=== PATIENT | male | born 1930 | race African-American/Black ===

== ENCOUNTER 2018-04-15 07:39 | Emergency (ER) | payer OTHER, MEDICAID ==
[~2018-04-15] VITALS: Ht 175.3 cm; Wt 82.0 kg
[2018-04-15 09:13] LABS: HEMATOCRIT. 31.1 % (42.0-52.0); MEAN CORPUSCULAR HEMOGLOBIN 27.2 pg (28.0-32.0); MEAN CORPUSCULAR VOLUME 84.3 fL (80.0-94.0); MEAN PLATELET VOLUME 8.8 fl (7.4-10.4); PLATELET 158 x1000/uL (130-400); RED BLOOD CELL COUNT 3.68 mill/uL (4.7-6.1); RED CELL DISTRIBUTION WIDTH 29.3 % (11.6-14.6)
[2018-04-15 09:19] LABS: CHLORIDE 108 mEq/L (98-107)
[2018-04-15 09:20] LABS: INR 1.2; PROTHROMBIN TIME 12.6 sec (9.4-11.6)
[2018-04-15 10:14] LABS: PLATELET ESTIMATE NORMAL
[2018-04-15 12:26] VITALS: BP 154/71
== END 2018-04-15 13:23 | disposition short-term general hospital (02) ==
LOC: ER 08:04
DX: R04.0 Epistaxis (principal); D64.9 Anemia, unspecified; I11.0 Hypertensive heart disease with heart failure; I50.9 Heart failure, unspecified; Z86.73 Personal history of transient ischemic attack (TIA), and cerebral infarction without residual deficits
CPT/HCPCS: 36415; 71045; 80053; 85025; 85610; 86850; 86900; 99285

== ENCOUNTER 2018-06-16 07:57 | Inpatient (IN) | payer OTHER, MEDICAID ==
[~2018-06-16] VITALS: Ht 167.6 cm; Wt 79.8 kg
[2018-06-16] MEDS ORDERED: SODIUM CHLORIDE 0.9% 1,000 ML IV ONE (08:14)
[2018-06-16 09:47] LABS: BASOPHILS % 0.8 % (0.0-2.0); EOSINOPHILS % 9.2 % (0.0-5.0); HEMATOCRIT. 29.4 % (42.0-52.0); HEMOGLOBIN. 9.7 g/dL (14.0-18.0); LYMPHOCYTES % 11.2 % (20.0-50.0); MEAN CORPUSCULAR HEMOGLOBIN 29.8 pg (28.0-32.0); MEAN CORPUSCULAR VOLUME 89.9 fL (80.0-94.0); MEAN PLATELET VOLUME 8.3 fl (7.4-10.4); MONOCYTES % 13.4 % (2.0-8.0); NEUTROPHILS % 65.4 % (40.0-76.0); PLATELET 152 x1000/uL (130-400); RED BLOOD CELL COUNT 3.27 mill/uL (4.7-6.1); RED CELL DISTRIBUTION WIDTH 21.9 % (11.6-14.6)
[2018-06-16 09:53] LABS: CHLORIDE 113 mEq/L (98-107)
[2018-06-16 09:54] LABS: INR 1.3; PROTHROMBIN TIME 12.7 sec (9.1-11.1)
[2018-06-16] MEDS ORDERED: ATOR40TA70 PO (11:11)
[2018-06-16] MEDS ORDERED: DIPH50SY IJ (11:11)
[2018-06-16] MEDS ORDERED: CYAN10009 PO (11:11)
[2018-06-16] MEDS ORDERED: IPRA3AMP31 IH (11:11)
[2018-06-16] MEDS ORDERED: DIPH-718 PO (11:11)
[2018-06-16] MEDS ORDERED: FURO20TA4 PO (11:16)
[2018-06-16] MEDS ORDERED: FERR325T6 PO (11:16)
[2018-06-16] MEDS ORDERED: POT25TAB5 PO (11:16)
[2018-06-16] MEDS ORDERED: CHOL20009 PO (11:16)
[2018-06-16] MEDS ORDERED: ALBU18HF2 IH ×2 (11:20→17:23)
[2018-06-16] MEDS ORDERED: OMEP20CA10 PO (11:20)
[2018-06-16] MEDS ORDERED: TERA1CAP7 PO ×2 (11:20→17:23)
[2018-06-16] MEDS ORDERED: LACT10SO70 PO ×2 (11:20→17:23)
[2018-06-16] MEDS ORDERED: MONT10TA21 PO (11:20)
[2018-06-16] MEDS ORDERED: CARB15DR OP (11:20)
[2018-06-16] MEDS ORDERED: BECL10.62 IH ×2 (11:20→17:23)
[2018-06-16] MEDS ORDERED: FUROSEMIDE 40MG/4ML VIAL IVP ONE (13:15)
[2018-06-16] MEDS ORDERED: NITROGLYCERIN OINT 1GM/INCH UDPKT TD ONE (13:15)
[2018-06-16] MEDS ORDERED: HYDRALAZINE 20MG/ML VIAL IV PRN (14:15)
[2018-06-16] MEDS ORDERED: CLONIDINE 0.1MG TABLET PO PRN (14:15)
[2018-06-16 16:20] LABS: CLARITY URINE CLEAR (CLEAR); COLOR URINE YELLOW (YELLOW); KETONES URINE NEGATIVE (NEGATIVE); LEUKOCYTE ESTERASE URINE 2+ (NEGATIVE); NITRITE URINE NEGATIVE (NEGATIVE); OCCULT BLOOD URINE NEGATIVE (NEGATIVE); PH URINE 6.5 (4.5-8.0); PROTEIN URINE NEGATIVE (NEGATIVE); SPECIFIC GRAVITY URINE 1.007 (1.005-1.030); UROBILINOGEN URINE 0.2 E.U./dL (0.2-1.0)
[2018-06-16 17:00] VITALS: BP 151/65
[2018-06-16] MEDS ORDERED: CYAN50003 PO (17:23)
[2018-06-16] MEDS ORDERED: CHOL200010 PO (17:23)
[2018-06-16] MEDS ORDERED: CARB15DR EACHEYE (17:23)
[2018-06-16] MEDS ORDERED: LACTULOSE 20G/30ML UDC PO SCH (18:00)
[2018-06-16 20:00] VITALS: BP 122/77
[2018-06-16] MEDS: LEVOFLOXACIN 500MG PREMIX 100 ML IV SCH (20:26)
[2018-06-16 20:34] LABS: AMMONIA 93 uMol/L (<32)
[2018-06-16] MEDS: OMEPRAZOLE 20MG CAPSULE EXTENDED RELEASE PO SCH (20:49)
[2018-06-16] MEDS: ATORVASTATIN CALCIUM 40MG TABLET PO SCH (20:49)
[2018-06-16] MEDS: TERAZOSIN HCL 1MG CAPSULE PO SCH (20:50)
[2018-06-16 20:57] LABS: HEPATITIS B SURFACE ANTIGEN NEGATIVE
[2018-06-16 21:25] LABS: HEPATITIS B CORE AB IGM NEGATIVE
[2018-06-16 21:26] LABS: HEPATITIS A AB IGM NEGATIVE (NEGATIVE)
[2018-06-16] MEDS: IPRATROPIUM/ALBUTEROL 0.5-3(2.5)MG/3ML NEB HHN PRN (21:40)
[2018-06-16] MEDS: BUDESONIDE 0.5MG/2ML NEB HHN SCH (21:41)
[2018-06-16 21:49] LABS: VITAMIN B12 SERUM 1685 pg/mL (211-911)
[2018-06-17] VITALS: BP 179/56
[2018-06-17 04:00] VITALS: BP 146/48
[2018-06-17 05:27] LABS: CHLORIDE 113 mEq/L (98-107); HEMATOCRIT. 25.9 % (42.0-52.0); HEMOGLOBIN. 8.8 g/dL (14.0-18.0); MEAN CORPUSCULAR HEMOGLOBIN 30.1 pg (28.0-32.0); MEAN CORPUSCULAR VOLUME 88.9 fL (80.0-94.0); MEAN PLATELET VOLUME 8.6 fl (7.4-10.4); PLATELET 130 x1000/uL (130-400); RED BLOOD CELL COUNT 2.91 mill/uL (4.7-6.1)
[2018-06-17] MEDS: OMEPRAZOLE 20MG CAPSULE EXTENDED RELEASE PO SCH ×2 (06:34→21:10)
[2018-06-17] MEDS: IPRATROPIUM/ALBUTEROL 0.5-3(2.5)MG/3ML NEB HHN PRN (07:54)
[2018-06-17] MEDS: BUDESONIDE 0.5MG/2ML NEB HHN SCH ×2 (07:55→20:24)
[2018-06-17 07:59] VITALS: BP 136/58
[2018-06-17] MEDS: ASPIRIN 81MG TABLET PO SCH (08:45)
[2018-06-17] MEDS: FUROSEMIDE 40MG TABLET PO SCH (08:45)
[2018-06-17] MEDS: LACTULOSE 20G/30ML UDC PO SCH ×3 (08:45→21:09)
[2018-06-17 12:00] VITALS: BP 120/51
[2018-06-17 16:14] VITALS: BP 126/55
[2018-06-17 18:50] LABS: PLATELET ESTIMATE NORMAL
[2018-06-17 20:00] VITALS: BP 132/54
[2018-06-17] MEDS: ATORVASTATIN CALCIUM 40MG TABLET PO SCH (21:09)
[2018-06-17] MEDS: TERAZOSIN HCL 1MG CAPSULE PO SCH (21:09)
[2018-06-17] MEDS: MONTELUKAST SODIUM 10MG TABLET PO SCH (21:10)
[2018-06-17] MEDS: LEVOFLOXACIN 500MG PREMIX 100 ML IV SCH (21:11)
[2018-06-18] VITALS (7 sets, daily range): BP systolic 100–136; BP diastolic 50–61
[2018-06-18 07:14] LABS: AMMONIA 91 uMol/L (<32)
[2018-06-18] MEDS: ASPIRIN 81MG TABLET PO SCH (07:18)
[2018-06-18] MEDS: LACTULOSE 20G/30ML UDC PO SCH ×3 (07:18→16:55)
[2018-06-18] MEDS: FUROSEMIDE 40MG TABLET PO SCH (07:18)
[2018-06-18] MEDS: OMEPRAZOLE 20MG CAPSULE EXTENDED RELEASE PO SCH (07:18)
[2018-06-18 07:54] LABS: HEMATOCRIT. 24.7 % (42.0-52.0); HEMOGLOBIN. 8.4 g/dL (14.0-18.0); MEAN CORPUSCULAR HEMOGLOBIN 29.9 pg (28.0-32.0); MEAN CORPUSCULAR VOLUME 88.4 fL (80.0-94.0); MEAN PLATELET VOLUME 8.4 fl (7.4-10.4); PLATELET 101 x1000/uL (130-400); RED BLOOD CELL COUNT 2.79 mill/uL (4.7-6.1); RED CELL DISTRIBUTION WIDTH 21.5 % (11.6-14.6)
[2018-06-18 08:44] LABS: CHLORIDE 110 mEq/L (98-107)
[2018-06-18] MEDS ORDERED: RIFAXIMIN 550 MG TABLET PO SCH (09:00)
[2018-06-18 11:10] LABS: PLATELET ESTIMATE DECREASED
[2018-06-18] MEDS: BUDESONIDE 0.5MG/2ML NEB HHN SCH ×2 (13:31→20:40)
[2018-06-18] MEDS: MONTELUKAST SODIUM 10MG TABLET PO SCH (16:55)
== END 2018-06-18 21:35 | disposition short-term general hospital (02) | DRG 70 ==
LOC: ER 08:19 → 6WST 13:22 → ENRESERV 15:24
PROVIDERS: ADMIT Internal Medicine; ATTEND Internal Medicine
DX: G93.41 Metabolic encephalopathy (principal); J18.9 Pneumonia, unspecified organism; E43 Unspecified severe protein-calorie malnutrition; I50.33 Acute on chronic diastolic (congestive) heart failure; N39.0 Urinary tract infection, site not specified; E72.20 Disorder of urea cycle metabolism, unspecified; I48.91 Unspecified atrial fibrillation; I11.0 Hypertensive heart disease with heart failure; M47.892 Other spondylosis, cervical region; M48.02 Spinal stenosis, cervical region; D64.9 Anemia, unspecified; E78.5 Hyperlipidemia, unspecified; B96.89 Other specified bacterial agents as the cause of diseases classified elsewhere; F03.90 Unspecified dementia, unspecified severity, without behavioral disturbance, psychotic disturbance, mood disturbance, and anxiety; H91.90 Unspecified hearing loss, unspecified ear; I25.10 Atherosclerotic heart disease of native coronary artery without angina pectoris; I27.20 Pulmonary hypertension, unspecified; R29.6 Repeated falls; Z79.899 Other long term (current) drug therapy; I69.334 Monoplegia of upper limb following cerebral infarction affecting left non-dominant side; I25.2 Old myocardial infarction; Z68.28 Body mass index [BMI] 28.0-28.9, adult
CPT/HCPCS: 36415; 70450; 70551; 71045; 72125; 72141; 80048; 80053; 80061; 81003; 82140; 82607; 82962; 83036; 83880; 84145; 84443; 84484; 85025; 85610; 86705; 86709; 86803; 87077; 87086; 87186; 87340; 92610; 93005; 94640; 96361; 96374; 97110; 97162; 97530; 99285; J1940; J1956; J7030; J7620; J7626; A4315

== ENCOUNTER 2018-10-10 04:47 | Emergency (ER) | payer OTHER, MEDICAID ==
[~2018-10-10] VITALS: Ht 182.9 cm; Wt 82.0 kg
[2018-10-10] MEDS ORDERED: IPRATROPIUM BROMIDE (0.02%) 0.5MG/2.5ML NEB HHN STA (06:41)
[2018-10-10] MEDS ORDERED: SODIUM CHLORIDE 0.9% 250 ML IV ONE (06:41)
[2018-10-10] MEDS ORDERED: ALBUTEROL (0.083%) 2.5MG/3ML NEB HHN STA (06:41)
[2018-10-10] MEDS ORDERED: LEVOFLOXACIN 500MG PREMIX 100 ML IV ONE (07:15)
[2018-10-10 07:45] LABS: HEMATOCRIT. 24.3 % (42.0-52.0); HEMOGLOBIN. 7.8 g/dL (14.0-18.0); MEAN CORPUSCULAR HEMOGLOBIN 31.8 pg (28.0-32.0); MEAN CORPUSCULAR VOLUME 98.7 fL (80.0-94.0); MEAN PLATELET VOLUME 9.1 fl (7.4-10.4); PLATELET 154 x1000/uL (130-400); RED BLOOD CELL COUNT 2.46 mill/uL (4.7-6.1); RED CELL DISTRIBUTION WIDTH 17.4 % (11.6-14.6)
[2018-10-10 07:52] LABS: INR 1.3; PARTIAL THROMBOPLASTIN TIME 29.4 sec (23.4-31.0); PROTHROMBIN TIME 12.8 sec (9.1-11.1)
[2018-10-10 07:56] LABS: CHLORIDE 111 mEq/L (98-107)
[2018-10-10 08:44] LABS: PLATELET ESTIMATE NORMAL
[2018-10-10] MEDS ORDERED: ASPIRIN 81MG TABLET PO ONE (09:00)
[2018-10-10 10:16] LABS: CLARITY URINE CLOUDY (CLEAR); COLOR URINE YELLOW (YELLOW); KETONES URINE TRACE (NEGATIVE); PROTEIN URINE NEGATIVE (NEGATIVE); SPECIFIC GRAVITY URINE 1.016 (1.005-1.030)
[2018-10-10 10:17] LABS: LEUKOCYTE ESTERASE URINE 2+ (NEGATIVE); NITRITE URINE POSITIVE (NEGATIVE); OCCULT BLOOD URINE 2+ (NEGATIVE)
[2018-10-10 11:28] VITALS: BP 136/54
== END 2018-10-10 12:10 | disposition short-term general hospital (02) ==
LOC: ER 04:47
DX: I11.0 Hypertensive heart disease with heart failure (principal); I50.41 Acute combined systolic (congestive) and diastolic (congestive) heart failure; J18.9 Pneumonia, unspecified organism; D64.9 Anemia, unspecified; R41.82 Altered mental status, unspecified; F03.90 Unspecified dementia, unspecified severity, without behavioral disturbance, psychotic disturbance, mood disturbance, and anxiety; R53.1 Weakness; J44.9 Chronic obstructive pulmonary disease, unspecified; I25.10 Atherosclerotic heart disease of native coronary artery without angina pectoris; E86.0 Dehydration; Z86.73 Personal history of transient ischemic attack (TIA), and cerebral infarction without residual deficits
CPT/HCPCS: 36415; 71045; 80053; 81003; 83605; 83880; 84145; 84484; 85025; 85610; 85730; 87040; 87077; 87086; 87186; 93005; 94640; 96365; 96366; 99291; J1956; J7050; J7611; A4315

== ENCOUNTER 2018-10-21 06:25 | Inpatient (IN) | payer OTHER, MEDICAID ==
[~2018-10-21] VITALS: Ht 167.6 cm; Wt 80.7 kg
[2018-10-21] MEDS ORDERED: SODIUM CHLORIDE 0.9% 1,000 ML IV ONE (06:49)
[2018-10-21 07:56] LABS: BASOPHILS % 1.3 % (0.0-2.0); EOSINOPHILS % 8.8 % (0.0-5.0); HEMATOCRIT. 30.1 % (42.0-52.0); HEMOGLOBIN. 9.6 g/dL (14.0-18.0); LYMPHOCYTES % 12.1 % (20.0-50.0); MEAN CORPUSCULAR HEMOGLOBIN 31.6 pg (28.0-32.0); MEAN CORPUSCULAR VOLUME 98.9 fL (80.0-94.0); MEAN PLATELET VOLUME 9.3 fl (7.4-10.4); MONOCYTES % 14.8 % (2.0-8.0); PLATELET 177 x1000/uL (130-400); RED BLOOD CELL COUNT 3.04 mill/uL (4.7-6.1); RED CELL DISTRIBUTION WIDTH 20.6 % (11.6-14.6)
[2018-10-21 08:03] LABS: CHLORIDE 114 mEq/L (98-107)
[2018-10-21 08:04] LABS: INR 1.2; PROTHROMBIN TIME 12.4 sec (9.1-11.1)
[2018-10-21] MEDS ORDERED: PIPERACILLIN/TAZ 3.375G PREMIX 50 ML IV ONE (09:15)
[2018-10-21] MEDS ORDERED: VANCOMYCIN 1 G PREMIX 200 ML IV ONE (09:15)
[2018-10-21] MEDS ORDERED: SODIUM CHLORIDE 0.9% 1000ML BAG (SEPSIS BOLUS) IV ONE (09:15)
[2018-10-21 12:00] VITALS: BP 142/76
[2018-10-21] MEDS ORDERED: IPRATROPIUM/ALBUTEROL 0.5-3(2.5)MG/3ML NEB INH PRN (12:15)
[2018-10-21] MEDS ORDERED: TRAMADOL 50MG TABLET PO PRN (12:15)
[2018-10-21] MEDS ORDERED: GUAIFENESIN 200MG/10ML SUGAR FREE UDC PO PRN (12:15)
[2018-10-21] MEDS ORDERED: NA PHOS,M-B/NA PHOS,DI-BA ENEMA 118ML PR PRN (12:15)
[2018-10-21] MEDS ORDERED: CLONIDINE 0.1MG TABLET PO PRN (12:15)
[2018-10-21] MEDS ORDERED: NITROGLYCERIN 0.4MG TABLET SL SL PRN (12:15)
[2018-10-21] MEDS ORDERED: ACETAMINOPHEN 325MG TABLET PO PRN (12:15)
[2018-10-21] MEDS ORDERED: ONDANSETRON HCL 4MG/2ML INJ IV PRN (12:15)
[2018-10-21] MEDS ORDERED: ZOLPIDEM TARTRATE 5MG TABLET PO PRN (12:15)
[2018-10-21] MEDS ORDERED: MAGNESIUM/ALUMINUM HYDROXIDE/SIMETHICONE 30ML UDC PO PRN (12:15)
[2018-10-21] MEDS ORDERED: DOCUSATE SODIUM 100MG CAPSULE PO PRN (12:15)
[2018-10-21] MEDS ORDERED: ENOXAPARIN 40MG/0.4ML SYR SUBCUT SCH (12:30)
[2018-10-21 13:29] VITALS: BP 142/76
[2018-10-21 14:00] VITALS: BP 139/67
[2018-10-21] MEDS: PIPERACILLIN/TAZ 3.375G PREMIX 50 ML IV SCH ×2 (15:30→21:41)
[2018-10-21 16:55] LABS: CREATINE KINASE MB FRACTION 1.4 ng/mL (0.5-3.6)
[2018-10-21] MEDS: DILTIAZEM HCL 30MG TABLET PO SCH (17:06)
[2018-10-21 18:06] VITALS: BP 146/64
[2018-10-21 19:08] LABS: T4 FREE 1.39 ng/dL (0.76-1.46)
[2018-10-21 19:43] LABS: VITAMIN B12 SERUM > 2000.0 pg/mL (211-911)
[2018-10-21 20:00] VITALS: BP 143/60
[2018-10-21] MEDS ORDERED: FAMOTIDINE 20MG TABLET PO SCH (21:00)
[2018-10-21] MEDS: ASCORBIC ACID 500 MG TABLET PO SCH (21:00)
[2018-10-21] MEDS: ENOXAPARIN 40MG/0.4ML SYR SUBCUT SCH (21:26)
[2018-10-21] MEDS ORDERED: SODIUM CHLORIDE 0.9% 1000ML BAG (SEPSIS BOLUS) IV NR (21:30)
[2018-10-21 22:00] VITALS: BP 136/89
[2018-10-21] MEDS ORDERED: VANCOMYCIN 1250MG in DEXTROSE 5% WATER 250ML IV SCH (22:00)
[2018-10-21] MEDS ORDERED: SODIUM CHLORIDE 0.9% 1,000 ML IV SCH (23:45)
[2018-10-21] MEDS ORDERED: SODIUM CHLORIDE 0.9% 2,200 ML IV SCH (23:57)
[2018-10-22] VITALS (19 sets, daily range): BP systolic 116–144; BP diastolic 48–78
[2018-10-22] MEDS: PIPERACILLIN/TAZ 3.375G PREMIX 50 ML IV SCH ×3 (02:58→16:58)
[2018-10-22] MEDS: DEXT 5%/LACTATED RINGERS 1,000 ML IV SCH ×2 (05:34→10:47)
[2018-10-22] MEDS: DILTIAZEM HCL 30MG TABLET PO SCH ×3 (06:00→12:00)
[2018-10-22 06:04] LABS: CHLORIDE 116 mEq/L (98-107)
[2018-10-22 06:06] LABS: HEMATOCRIT. 26.8 % (42.0-52.0); HEMOGLOBIN. 8.3 g/dL (14.0-18.0); MEAN CORPUSCULAR HEMOGLOBIN 31.3 pg (28.0-32.0); MEAN CORPUSCULAR VOLUME 101.4 fL (80.0-94.0); MEAN PLATELET VOLUME 9.5 fl (7.4-10.4); PLATELET 128 x1000/uL (130-400); RED BLOOD CELL COUNT 2.64 mill/uL (4.7-6.1); RED CELL DISTRIBUTION WIDTH 19.9 % (11.6-14.6)
[2018-10-22] MEDS ORDERED: ASPIRIN 325MG EC TABLET PO SCH (09:00)
[2018-10-22] MEDS ORDERED: ZINC SULFATE 220 MG ( 50 ) CAPSULE PO SCH (09:00)
[2018-10-22] MEDS: ASCORBIC ACID 500 MG TABLET PO SCH (09:00)
[2018-10-22] MEDS: ENOXAPARIN 40MG/0.4ML SYR SUBCUT SCH (12:46)
[2018-10-22 13:27] LABS: PLATELET ESTIMATE SLIGHTLY DECREASED
[2018-10-22] MEDS ORDERED: MONT10TA21 PO (13:49)
[2018-10-22] MEDS ORDERED: FERR324T4 MT (13:49)
[2018-10-22] MEDS ORDERED: CYAN-33 PO (13:49)
[2018-10-22] MEDS ORDERED: TAMS-11 PO (13:49)
[2018-10-22] MEDS ORDERED: LACT10SO7 PO (13:49)
[2018-10-22] MEDS ORDERED: CHOL20004 PO (13:49)
[2018-10-22] MEDS ORDERED: OMEP20CA10 PO (13:49)
[2018-10-22] MEDS ORDERED: FURO-151 PO (13:49)
[2018-10-22] MEDS ORDERED: POTA20TA82 PO (13:49)
[2018-10-22] MEDS ORDERED: ATROPINE SULFATE 1MG/ML VIAL IV PRN (14:00)
[2018-10-22 18:10] LABS: CLARITY URINE CLEAR (CLEAR); COLOR URINE YELLOW (YELLOW); KETONES URINE NEGATIVE (NEGATIVE); LEUKOCYTE ESTERASE URINE 2+ (NEGATIVE); NITRITE URINE POSITIVE (NEGATIVE); OCCULT BLOOD URINE 1+ (NEGATIVE); PH URINE 5.5 (4.5-8.0); PROTEIN URINE NEGATIVE (NEGATIVE); SPECIFIC GRAVITY URINE 1.018 (1.005-1.030); UROBILINOGEN URINE 0.2 E.U./dL (0.2-1.0)
[2018-10-22] MEDS ORDERED: VANCOMYCIN 1250MG in DEXTROSE 5% WATER 250ML IV SCH (21:00)
[2018-10-23] MEDS ORDERED: ASPIRIN 81MG EC TABLET PO SCH (09:00)
== END 2018-10-22 21:42 | disposition short-term general hospital (02) | DRG 871 ==
LOC: ER 06:25 → 3WST 09:51 → EDBEDREQ 09:53 → ENRESERV 11:00
PROVIDERS: ADMIT Internal Medicine; ATTEND Internal Medicine
DX: A41.9 Sepsis, unspecified organism (principal); G92 Toxic encephalopathy; E43 Unspecified severe protein-calorie malnutrition; I21.4 Non-ST elevation (NSTEMI) myocardial infarction; I69.351 Hemiplegia and hemiparesis following cerebral infarction affecting right dominant side; D63.8 Anemia in other chronic diseases classified elsewhere; F03.90 Unspecified dementia, unspecified severity, without behavioral disturbance, psychotic disturbance, mood disturbance, and anxiety; I08.0 Rheumatic disorders of both mitral and aortic valves; I11.0 Hypertensive heart disease with heart failure; I25.10 Atherosclerotic heart disease of native coronary artery without angina pectoris; I27.21 Secondary pulmonary arterial hypertension; I44.7 Left bundle-branch block, unspecified; I48.91 Unspecified atrial fibrillation; I50.9 Heart failure, unspecified; Z68.28 Body mass index [BMI] 28.0-28.9, adult
CPT/HCPCS: 36415; 70551; 71045; 80061; 82550; 82553; 82607; 82746; 83036; 83540; 83550; 83605; 83735; 83880; 84145; 84439; 84443; 84484; 87077; 87186; 92610; 93005; 93306; 93970; 96361; 96365; 96366; 96375; 99291; J1650; J2543; J3370; J7030; J7050; J7060; J7121

== ENCOUNTER 2018-11-21 16:31 | Emergency (ER) | payer OTHER, MEDICAID ==
[~2018-11-21] VITALS: Ht 182.9 cm; Wt 110.0 kg
[~2018-11-21 16:31] MED LIST: CHOL20004 PO; CYAN-33 PO; FERR324T4 MT; FURO-151 PO; LACT10SO7 PO; MONT10TA21 PO; OMEP20CA10 PO; POTA20TA82 PO; TAMS-11 PO
[2018-11-21] MEDS ORDERED: SODIUM CHLORIDE 0.9% 1,000 ML IV ONE ×2 (17:45→20:45)
[2018-11-21 18:41] LABS: BASOPHILS % 0.6 % (0.0-2.0); EOSINOPHILS % 2.9 % (0.0-5.0); HEMATOCRIT. 31.4 % (42.0-52.0); HEMOGLOBIN. 9.9 g/dL (14.0-18.0); LYMPHOCYTES % 11.9 % (20.0-50.0); MEAN CORPUSCULAR HEMOGLOBIN 30.6 pg (28.0-32.0); MEAN CORPUSCULAR VOLUME 96.6 fL (80.0-94.0); MEAN PLATELET VOLUME 9.3 fl (7.4-10.4); MONOCYTES % 14.8 % (2.0-8.0); NEUTROPHILS % 69.8 % (40.0-76.0); PLATELET 133 x1000/uL (130-400); RED BLOOD CELL COUNT 3.25 mill/uL (4.7-6.1); RED CELL DISTRIBUTION WIDTH 20.5 % (11.6-14.6)
[2018-11-21 18:46] LABS: CHLORIDE 111 mEq/L (98-107)
[2018-11-21] MEDS ORDERED: CEFTRIAXONE 1 G PREMIX 50 ML IV ONE (22:45)
[2018-11-21 22:51] LABS: INR 1.3; PROTHROMBIN TIME 13.2 sec (9.1-11.1)
[2018-11-21 23:01] LABS: BG BASE EXCESS 2.3 mmol/L (-2.0-2.0); BG CARBOXYHEMOGLOBIN 0.7 % (0.5-1.5); BG DEOXYHEMOGLOBIN 4.4 % (0.0-5.0); BG FRACTION INSPIRED OXYGEN 21; BG HCO3 ACT 25.1 mmol/L (22.0-26.0); BG METHEMOGLOBIN 0.1 % (0.0-1.5); BG OXYGEN SATURATION 95.6 % (92.0-98.5); BG OXYHEMOGLOBIN 94.8 % (94.0-97.0); BG PCO2 32.1 mmHg (35.0-45.0); BG PH 7.511 (7.350-7.450); BG PO2 81.3 mmHg (75.0-100.0); BG SAMPLE SITE RIGHT RADIAL; BG TOTAL HEMOGLOBIN 9.5 g/dL (12.0-18.0); BG VENT MODE ROOM AIR
[2018-11-22] MEDS ORDERED: LACTULOSE 20G/30ML UDC PO ONE (00:30)
[2018-11-22 01:35] LABS: CLARITY URINE CLOUDY (CLEAR); COLOR URINE YELLOW (YELLOW); KETONES URINE NEGATIVE (NEGATIVE); LEUKOCYTE ESTERASE URINE 2+ (NEGATIVE); NITRITE URINE POSITIVE (NEGATIVE); OCCULT BLOOD URINE 3+ (NEGATIVE); PROTEIN URINE NEGATIVE (NEGATIVE); SPECIFIC GRAVITY URINE 1.013 (1.005-1.030)
[2018-11-22 03:07] VITALS: BP 147/66
== END 2018-11-22 03:11 | disposition short-term general hospital (02) ==
LOC: ER 16:31 → CANBEDREQ 11-22 03:58
DX: K72.00 Acute and subacute hepatic failure without coma (principal); N30.00 Acute cystitis without hematuria; I10 Essential (primary) hypertension; D64.9 Anemia, unspecified; R00.0 Tachycardia, unspecified; I69.354 Hemiplegia and hemiparesis following cerebral infarction affecting left non-dominant side
CPT/HCPCS: 36415; 36600; 70450; 71045; 80053; 81003; 82140; 82375; 82805; 85025; 85610; 87040; 87077; 87086; 87186; 93005; 96361; 96365; 99285; J0696; J7030

== ENCOUNTER 2019-02-22 02:59 | Emergency (ER) | payer OTHER, MEDICAID ==
[~2019-02-22] VITALS: Ht 177.8 cm; Wt 95.0 kg
[2019-02-22 04:37] LABS: HEMATOCRIT. 28.1 % (42.0-52.0); HEMOGLOBIN. 8.7 g/dL (14.0-18.0); MEAN CORPUSCULAR VOLUME 103.3 fL (80.0-94.0); MEAN PLATELET VOLUME 9.6 fl (7.4-10.4); PLATELET 142 x1000/uL (130-400); RED BLOOD CELL COUNT 2.72 mill/uL (4.7-6.1); RED CELL DISTRIBUTION WIDTH 20.5 % (11.6-14.6)
[2019-02-22 05:36] LABS: CHLORIDE 116 mEq/L (98-107)
[2019-02-22 06:09] LABS: PLATELET ESTIMATE NORMAL
[2019-02-22] MEDS: FUROSEMIDE 40MG/4ML VIAL IVP ONE (06:47)
[2019-02-22] MEDS ORDERED: ASPIRIN 300MG SUPP PR ONE (07:00)
[2019-02-22 08:28] VITALS: BP 150/46
[2019-02-22] MEDS: ASPIRIN 81MG TABLET PO ONE (08:28)
== END 2019-02-22 10:20 | disposition short-term general hospital (02) ==
LOC: ER 02:59 → CANBEDREQ 10:49
DX: I11.0 Hypertensive heart disease with heart failure (principal); I50.9 Heart failure, unspecified; R60.1 Generalized edema; J44.9 Chronic obstructive pulmonary disease, unspecified; Z86.73 Personal history of transient ischemic attack (TIA), and cerebral infarction without residual deficits; Z96.653 Presence of artificial knee joint, bilateral
CPT/HCPCS: 36415; 71045; 74021; 80053; 83880; 84484; 85025; 93005; 93971; 96374; 99285; J1940; A4315

== ENCOUNTER 2019-02-28 16:31 | Emergency (ER) | payer OTHER, MEDICAID ==
[~2019-02-28] VITALS: Ht 177.8 cm; Wt 73.0 kg
[2019-02-28 17:11] LABS: BASOPHILS % 1.2 % (0.0-2.0); EOSINOPHILS % 1.8 % (0.0-5.0); HEMATOCRIT. 26.1 % (42.0-52.0); HEMOGLOBIN. 8.5 g/dL (14.0-18.0); LYMPHOCYTES % 19.1 % (20.0-50.0); MEAN CORPUSCULAR HEMOGLOBIN 31.1 pg (28.0-32.0); MEAN CORPUSCULAR VOLUME 95.8 fL (80.0-94.0); MEAN PLATELET VOLUME 9.2 fl (7.4-10.4); NEUTROPHILS % 63.9 % (40.0-76.0); PLATELET 130 x1000/uL (130-400); RED BLOOD CELL COUNT 2.73 mill/uL (4.7-6.1); RED CELL DISTRIBUTION WIDTH 19.6 % (11.6-14.6)
[2019-02-28 17:14] LABS: CHLORIDE 109 mEq/L (98-107); INR 1.2; PROTHROMBIN TIME 12.6 sec (9.6-11.0)
[2019-02-28] MEDS ORDERED: FUROSEMIDE 40MG/4ML VIAL IVP ONE (20:30)
[2019-02-28] MEDS ORDERED: LACTULOSE 20G/30ML UDC PO ONE (21:45)
[2019-02-28 22:55] LABS: CLARITY URINE CLEAR (CLEAR); COLOR URINE YELLOW (YELLOW); KETONES URINE NEGATIVE (NEGATIVE); LEUKOCYTE ESTERASE URINE 2+ (NEGATIVE); NITRITE URINE NEGATIVE (NEGATIVE); OCCULT BLOOD URINE 2+ (NEGATIVE); PROTEIN URINE NEGATIVE (NEGATIVE); SPECIFIC GRAVITY URINE 1.008 (1.005-1.030); UROBILINOGEN URINE 0.2 E.U./dL (0.2-1.0)
[2019-02-28 23:40] VITALS: BP 132/55
== END 2019-03-01 00:19 | disposition short-term general hospital (02) ==
LOC: ER 16:31 → CANBEDREQ 03-01 00:57
DX: I11.0 Hypertensive heart disease with heart failure (principal); I50.9 Heart failure, unspecified; F03.90 Unspecified dementia, unspecified severity, without behavioral disturbance, psychotic disturbance, mood disturbance, and anxiety; J44.9 Chronic obstructive pulmonary disease, unspecified; Z86.73 Personal history of transient ischemic attack (TIA), and cerebral infarction without residual deficits; Z96.659 Presence of unspecified artificial knee joint
CPT/HCPCS: 36415; 70450; 71045; 80053; 81003; 82140; 82962; 83605; 83880; 84145; 84484; 85025; 85610; 87040; 87077; 87086; 87186; 93005; 96374; 99285; J1940

== ENCOUNTER 2019-11-12 07:44 | Inpatient (IN) | payer OTHER, MEDICAID ==
[~2019-11-12] VITALS: Ht 172.7 cm; Wt 69.9 kg
[2019-11-12] MEDS ORDERED: CEFTRIAXONE 1 G PREMIX 50 ML IV ONE ×2 (09:15→11:30)
[2019-11-12] MEDS ORDERED: AZITHROMYCIN 500 MG in DEXT 5% WATER 250 ML IV ONE ×2 (09:15→11:30)
[2019-11-12] MEDS ORDERED: SODIUM CHLORIDE 0.9% 1000ML BAG (SEPSIS BOLUS) IV ONE ×2 (09:15→11:30)
[2019-11-12 10:19] LABS: MEAN CORPUSCULAR HEMOGLOBIN 28.8 pg (28.0-32.0); MEAN CORPUSCULAR VOLUME 97.7 fL (80.0-94.0); MEAN PLATELET VOLUME 9.6 fl (7.4-10.4); PLATELET 136 x1000/uL (130-400); RED BLOOD CELL COUNT 2.01 mill/uL (4.7-6.1); RED CELL DISTRIBUTION WIDTH 22.3 % (11.6-14.6)
[2019-11-12 10:21] LABS: HEMATOCRIT. 19.7 % (42.0-52.0); HEMOGLOBIN. 5.8 g/dL (14.0-18.0)
[2019-11-12 10:23] LABS: INR 1.2; PROTHROMBIN TIME 12.4 sec (9.6-11.0)
[2019-11-12 10:24] LABS: CHLORIDE 120 mEq/L (98-107)
[2019-11-12 10:42] LABS: PLATELET ESTIMATE NORMAL
[2019-11-12 11:28] LABS: CLARITY URINE CLOUDY (CLEAR); COLOR URINE YELLOW (YELLOW); KETONES URINE NEGATIVE (NEGATIVE); LEUKOCYTE ESTERASE URINE TRACE (NEGATIVE); NITRITE URINE NEGATIVE (NEGATIVE); OCCULT BLOOD URINE 2+ (NEGATIVE); PH URINE 5.5 (4.5-8.0); PROTEIN URINE NEGATIVE (NEGATIVE); SPECIFIC GRAVITY URINE 1.015 (1.005-1.030); UROBILINOGEN URINE 0.2 E.U./dL (0.2-1.0)
[2019-11-12 11:45] LABS: *AMPHETAMINES SCREEN URINE NEGATIVE (NEGATIVE); *BARBITURATES SCREEN URINE NEGATIVE (NEGATIVE); *BENZODIAZEPINES SCREEN URINE NEGATIVE (NEGATIVE); *COCAINE SCREEN URINE NEGATIVE (NEGATIVE); METHADONE URINE SCREEN NEGATIVE (NEGATIVE); OPIATES URINE SCREEN NEGATIVE (NEGATIVE)
[2019-11-12 11:46] LABS: CANNABINOID URINE SCREEN NEGATIVE (NEGATIVE); PHENCYCLIDINE URINE SCREEN NEGATIVE (NEGATIVE)
[2019-11-12] MEDS ORDERED: GUAIFENESIN 200MG/10ML SUGAR FREE UDC PO PRN (13:45)
[2019-11-12] MEDS ORDERED: ACETAMINOPHEN 650MG SUPP PR PRN (13:45)
[2019-11-12] MEDS ORDERED: CLONIDINE 0.1MG TABLET PO PRN (13:45)
[2019-11-12] MEDS ORDERED: ONDANSETRON HCL 4MG/2ML INJ IV PRN (13:45)
[2019-11-12] MEDS ORDERED: LORAZEPAM 2MG/ML CPJ IV PRN (13:45)
[2019-11-12 17:45] VITALS: BP 123/63
[2019-11-12] MEDS: PANTOPRAZOLE SODIUM 40 MG/VIAL IV SCH (18:40)
[2019-11-12] MEDS: DEXTROSE 5% WATER 1,000 ML IV SCH (18:40)
[2019-11-12 20:00] VITALS: BP 115/56
[2019-11-12 21:51] LABS: HEMATOCRIT 22.8 % (42.0-52.0)
[2019-11-12 22:00] VITALS: BP 123/54
[2019-11-13] VITALS (16 sets, daily range): BP systolic 94–126; BP diastolic 43–61
[2019-11-13] MEDS: DEXTROSE 5% WATER 1,000 ML IV SCH ×2 (02:37→08:25)
[2019-11-13 06:15] LABS: HEMATOCRIT. 25.9 % (42.0-52.0); HEMOGLOBIN. 8.2 g/dL (14.0-18.0); MEAN CORPUSCULAR HEMOGLOBIN 29.3 pg (28.0-32.0); MEAN CORPUSCULAR VOLUME 92.8 fL (80.0-94.0); MEAN PLATELET VOLUME 9.2 fl (7.4-10.4); PLATELET 96 x1000/uL (130-400); RED BLOOD CELL COUNT 2.79 mill/uL (4.7-6.1)
[2019-11-13 06:50] LABS: CHLORIDE 120 mEq/L (98-107)
[2019-11-13 07:00] LABS: T4 FREE 1.22 ng/dL (0.76-1.46)
[2019-11-13] MEDS: PANTOPRAZOLE SODIUM 40 MG/VIAL IV SCH (08:25)
[2019-11-13] MEDS ORDERED: IPRATROPIUM/ALBUTEROL 0.5-3(2.5)MG/3ML NEB HHN PRN (09:30)
[2019-11-13] MEDS ORDERED: CEFTRIAXONE 1 G PREMIX 50 ML IV SCH (10:00)
[2019-11-13] MEDS: CEFEPIME 1,000 MG in DEXTROSE 5% WATER 50 ML IV SCH (10:38)
[2019-11-13] MEDS: METRONIDAZOLE 500 MG PREMIX 100 ML IV SCH ×2 (10:38→18:19)
[2019-11-13] MEDS ORDERED: AZITHROMYCIN 500 MG in DEXT 5% WATER 250 ML IV SCH (11:00)
[2019-11-13 13:15] LABS: NUCLEATED RED BLOOD CELLS 2 /100 WBC
[2019-11-13 13:16] LABS: PLATELET ESTIMATE DECREASED
[2019-11-13] MEDS: IPRATROPIUM/ALBUTEROL 0.5-3(2.5)MG/3ML NEB HHN SCH ×2 (13:20→20:52)
[2019-11-13 15:52] LABS: CREATINE KINASE MB FRACTION 2.9 ng/mL (0.5-3.6)
[2019-11-14] VITALS (11 sets, daily range): BP systolic 90–121; BP diastolic 42–69
[2019-11-14] MEDS: IPRATROPIUM/ALBUTEROL 0.5-3(2.5)MG/3ML NEB HHN SCH ×3 (01:24→14:15)
[2019-11-14] MEDS: METRONIDAZOLE 500 MG PREMIX 100 ML IV SCH ×2 (02:34→10:00)
[2019-11-14] MEDS: DEXTROSE 5% WATER 1,000 ML IV SCH (05:19)
[2019-11-14 07:50] LABS: HEMATOCRIT. 23.1 % (42.0-52.0); HEMOGLOBIN. 7.4 g/dL (14.0-18.0); MEAN CORPUSCULAR HEMOGLOBIN 28.7 pg (28.0-32.0); MEAN CORPUSCULAR VOLUME 89.8 fL (80.0-94.0); MEAN PLATELET VOLUME 9.1 fl (7.4-10.4); PLATELET 97 x1000/uL (130-400); RED BLOOD CELL COUNT 2.57 mill/uL (4.7-6.1); RED CELL DISTRIBUTION WIDTH 18.9 % (11.6-14.6)
[2019-11-14 08:00] LABS: CHLORIDE 120 mEq/L (98-107)
[2019-11-14 08:09] LABS: CREATINE KINASE 267 IU/L (39-308)
[2019-11-14 08:11] LABS: CREATINE KINASE MB FRACTION 1.7 ng/mL (0.5-3.6)
[2019-11-14] MEDS: PANTOPRAZOLE SODIUM 40 MG/VIAL IV SCH (10:00)
[2019-11-14] MEDS: CEFEPIME 1,000 MG in DEXTROSE 5% WATER 50 ML IV SCH (11:18)
[2019-11-14] MEDS ORDERED: POTASSIUM CHLORIDE INJ 40 MEQ in DEXT 5% WATER 250 ML IV NR (11:45)
[2019-11-14] MEDS ORDERED: AMIKACIN SULFATE 500 MG in SODIUM CHLORIDE 0.9% 100 ML IV SCH (17:00)
[2019-11-14 18:41] LABS: PLATELET ESTIMATE DECREASED
[2019-11-15] MEDS ORDERED: AMIKACIN SULFATE 500 MG in SODIUM CHLORIDE 0.9% 100 ML IV SCH (11:00)
== END 2019-11-14 18:50 | disposition short-term general hospital (02) | DRG 871 ==
LOC: ER 07:44 → 5EST 12:48 → EDBEDREQTM 12:52 → EDBEDREQSVC 12:52 → EDBEDREQ 12:52 → EDBEDREQSVC 13:45 → ENRESERV 15:37
PROVIDERS: ADMIT Hospitalist; ATTEND Hospitalist
PROC: 30233N1 Transfusion of Nonautologous Red Blood Cells into Peripheral Vein, Percutaneous Approach (ICD-10-PCS; principal; 2019-11-12)
DX: A41.50 Gram-negative sepsis, unspecified (principal); E43 Unspecified severe protein-calorie malnutrition; I21.4 Non-ST elevation (NSTEMI) myocardial infarction; J18.9 Pneumonia, unspecified organism; J96.00 Acute respiratory failure, unspecified whether with hypoxia or hypercapnia; E87.0 Hyperosmolality and hypernatremia; E87.2 Acidosis; I48.92 Unspecified atrial flutter; J44.0 Chronic obstructive pulmonary disease with (acute) lower respiratory infection; N17.9 Acute kidney failure, unspecified; N39.0 Urinary tract infection, site not specified; I69.354 Hemiplegia and hemiparesis following cerebral infarction affecting left non-dominant side; E78.5 Hyperlipidemia, unspecified; F03.90 Unspecified dementia, unspecified severity, without behavioral disturbance, psychotic disturbance, mood disturbance, and anxiety; I11.0 Hypertensive heart disease with heart failure; D50.9 Iron deficiency anemia, unspecified; Z96.659 Presence of unspecified artificial knee joint; D69.6 Thrombocytopenia, unspecified; E11.9 Type 2 diabetes mellitus without complications; I27.20 Pulmonary hypertension, unspecified; I34.0 Nonrheumatic mitral (valve) insufficiency; I35.2 Nonrheumatic aortic (valve) stenosis with insufficiency; I48.91 Unspecified atrial fibrillation; I50.9 Heart failure, unspecified; Z68.23 Body mass index [BMI] 23.0-23.9, adult; I69.320 Aphasia following cerebral infarction; B96.89 Other specified bacterial agents as the cause of diseases classified elsewhere
CPT/HCPCS: 36415; 71045; 80048; 80053; 80061; 80076; 80305; 81003; 82550; 82553; 83036; 83540; 83550; 83605; 83880; 84145; 84439; 84443; 84484; 85014; 85018; 85025; 86850; 86900; 86920; 87077; 87186; 87804; 93005; 93306; 93970; 94640; 96365; 99291; C9113; J0278; J0456; J0692; J0696; J2060; J3480; J3490; J7030; J7040; J7050; J7060; J7070; J7620; P9016